=== PATIENT | female | born 1980 | race Caucasian/White ===

== ENCOUNTER → 2021-05-29 09:33 | Outpatient (BNVA) | payer OTHER, SELFPAY | PROVIDERS: Family Provider Family Medicine; PCP Family Medicine; Visit Provider Nurse Practitioner Family | DX: R35.0 Frequency of micturition (principal); R39.9 Unspecified symptoms and signs involving the genitourinary system; R03.0 Elevated blood-pressure reading, without diagnosis of hypertension | CPT/HCPCS: 81000 ==

== ENCOUNTER 2021-08-28 09:04 | Outpatient (CLI) | payer OTHER, SELFPAY ==
[2021-08-28 10:17] LABS: Estmated Average Glucose 126
[2021-08-29 15:51] LABS: Thyroid Peroxidase Antobodies 1 IU/mL (<9)
== END 2021-08-28 09:05 | disposition home or self-care (01) ==
PROVIDERS: PCP Family Medicine; Visit Provider Internal Medicine
DX: Z87.42 Personal history of other diseases of the female genital tract (principal); R63.5 Abnormal weight gain
CPT/HCPCS: 36415; 82533; 83036; 86376

== ENCOUNTER → 2023-05-19 08:33 | Outpatient (BNVA) | payer OTHER, SELFPAY | PROVIDERS: PCP Family Medicine; Visit Provider Internal Medicine | DX: E28.2 Polycystic ovarian syndrome (principal); R63.5 Abnormal weight gain; L68.0 Hirsutism; Z79.84 Long term (current) use of oral hypoglycemic drugs; Z68.41 Body mass index [BMI] 40.0-44.9, adult | CPT/HCPCS: 99214 ==

== ENCOUNTER → 2023-11-03 11:33 | Outpatient (BNVA) | payer OTHER, SELFPAY | PROVIDERS: PCP Family Medicine; Visit Provider Internal Medicine | DX: R79.89 Other specified abnormal findings of blood chemistry (principal); R73.03 Prediabetes; E28.2 Polycystic ovarian syndrome; R63.5 Abnormal weight gain; L68.0 Hirsutism; Z79.84 Long term (current) use of oral hypoglycemic drugs; Z68.41 Body mass index [BMI] 40.0-44.9, adult; Z79.890 Hormone replacement therapy | CPT/HCPCS: 99214 ==

== ENCOUNTER → 2024-05-31 15:20 | Outpatient (BNVA) | payer OTHER, SELFPAY | PROVIDERS: PCP Family Medicine; Visit Provider Family Medicine | DX: R79.89 Other specified abnormal findings of blood chemistry (principal); R73.03 Prediabetes; E28.2 Polycystic ovarian syndrome | CPT/HCPCS: 80053; 80061; 82043; 83036; 84403 ==

== ENCOUNTER 2024-12-27 10:17 | Outpatient (CLI) | payer OTHER, SELFPAY ==
--- NOTE | 2024-12-27 10:20 | MM_ITS ---
WS: [id number] BILATERAL 3D TOMOSYNTHESIS DIGITAL SCREENING MAMMOGRAPHY WITH CAD CLINICAL INFORMATION: SCREENING HISTORY: Screening mammogram. No current complaints. COMPARISON: None. TECHNIQUE: Bilateral CC and MLO views. FINDINGS: Scattered fibroglandular densities bilaterally. No suspicious focal mass, asymmetry, calcifications, or architectural distortion. No evidence of malignancy. MM/MM scr BI tomosynthesis [id number] IMPRESSION: DENSITY: There are scattered areas of fibroglandular density. BI-RADS: 1 - Negative. FOLLOW UP: 1 Year Follow-up Recommend return to annual screening mammography.
== END 2024-12-27 10:18 | disposition home or self-care (01) ==
LOC: MOBLMAM 10:18
PROVIDERS: PCP Specialist; Visit Provider Specialist
DX: Z12.31 Encounter for screening mammogram for malignant neoplasm of breast (principal); R92.323 Mammographic fibroglandular density, bilateral breasts
CPT/HCPCS: 77063; 77067